=== PATIENT | female | born 1975 | race Caucasian/White ===

== ENCOUNTER 2018-02-26 06:30 | Day surgery (SDC) | payer BC ==
[2018-02-26] MEDS ORDERED: Sodium Chloride 0.9% 2.5 ML Syringe FLUSH PRN (06:56)
[2018-02-26] MEDS ORDERED: Sodium Chloride 0.9% 10 ML Syringe FLUSH PRN (06:56)
[2018-02-26] MEDS ORDERED: ceFAZolin 1 GM in Premix Bag 1 BAG IV ONE (06:56)
[2018-02-26] MEDS: Lactated Ringers 1,000 ML IV SCH ×2 (07:00→21:39)
--- NOTE | 2018-02-26 07:15 | PCM.PREANE ---
Preanesthetic Assessment - Anesthesia/Transfusion/Family Hx Anesthesia History: Prior Anesthesia Without Reaction Transfusion History: No Prior Transfusion(s) - Review of Systems General: No Symptoms Pulmonary: No Symptoms Cardiovascular: No Symptoms Gastrointestinal: No Symptoms Neurological: No Symptoms Other: Reports: None - Physical Assessment Height: 5 ft 4 in Weight: 72.121 kg ASA Class: 2 Mental Status: Alert & Oriented x3 Airway Class: Mallampati = 2 Dentition: Reports: Normal Dentition Thyro-Mental Finger Breadths: 3 Mouth Opening Finger Breadths: 3 ROM/Head Extension: Full Lungs: Clear to Auscultation, Normal Respiratory Effort Cardiovascular: Regular Rate, Regular Rhythm - Lab Values: Laboratory Last Values WBC 6.41 K/uL (4.0-11.0) 02/26/18 06:01 RBC 4.35 M/uL (4.30-5.90) 02/26/18 06:01 Hgb 12.3 g/dL (12.0-16.0) 02/26/18 06:01 Hct 38.0 % (36.0-46.0) 02/26/18 06:01 MCV 87.4 fL (80.0-98.0) 02/26/18 06:01 MCH 28.3 pg (27.0-32.0) 02/26/18 06:01 MCHC 32.4 g/dL (31.0-37.0) 02/26/18 06:01 RDW Std Deviation 44.0 fl (28.0-62.0) 02/26/18 06:01 RDW Coeff of Lizabeth 14 % (11.0-15.0) 02/26/18 06:01 Plt Count 291 K/uL (150-400) 02/26/18 06:01 MPV 9.00 fL (7.40-12.00) 02/26/18 06:01 Neut % (Auto) 58.8 % (48.0-80.0) 02/26/18 06:01 Lymph % (Auto) 32.3 % (16.0-40.0) 02/26/18 06:01 [place] % (Auto) 5.8 % (0.0-15.0) 02/26/18 06:01 Eos % (Auto) 2.3 % (0.0-7.0) 02/26/18 06:01 Baso % (Auto) 0.8 % (0.0-1.5) 02/26/18 06:01 Neut # (Auto) 3.8 K/uL (1.4-5.7) 02/26/18 06:01 Lymph # (Auto) 2.1 K/uL (0.6-2.4) 02/26/18 06:01 [place] # (Auto) 0.4 K/uL (0.0-0.8) 02/26/18 06:01 Eos # (Auto) 0.2 K/uL (0.0-0.7) 02/26/18 06:01 Baso # (Auto) 0.1 K/uL (0.0-0.1) 02/26/18 06:01 Nucleated RBC % 0.0 /100WBC 02/26/18 06:01 Nucleated RBCs # 0 K/uL 02/26/18 06:01 - Allergies Allergies/Adverse Reactions: Allergies Allergy/AdvReac Type Severity Reaction Status Date / Time erythromycin base Allergy Stomach Verified 02/20/18 11:56 Upset latex Allergy Swelling Verified 02/20/18 11:56 - Acknowledgements Anesthesia Type Planned: General Anesthesia Pt an Appropriate Candidate for the Planned Anesthesia: Yes Alternatives and Risks of Anesthesia Discussed w Pt/Guardian: Yes Pt/Guardian Understands and Agrees with Anesthesia Plan: Yes PreAnesthesia Questionnaire HEENT History: Reports: Allergic Rhinitis, Other (See Below) Other HEENT History: wears glasses/contacts Cardiovascular History: Reports: Other (See Below) Other Cardiovascular History: hx tachycardia in high school Respiratory History: Reports: None Gastrointestinal History: Reports: None Genitourinary History: Reports: None FUR DYER History: Reports: Musculoskeletal History: Reports: None Neurological History: Reports: Migraines Psychiatric History: Reports: Anxiety, Depression Endocrine/Metabolic History: Reports: None Hematologic History: Reports: None Immunologic History: Reports: None Oncologic (Cancer) History: Reports: None Dermatologic History: Reports: None - Infectious Disease History Infectious Disease History: Reports: Herpes - Past Surgical History Head Surgeries/Procedures: Reports: None HEENT Surgical History: Reports: Oral Surgery Female Surgical History: Reports: Other (See Below) Other Female Surgeries/Procedures: hx laparoscopy for endometriosis - SUBSTANCE USE Smoking Status *Q: Former Smoker Tobacco Use Within Last Twelve Months: No Recreational Drug Use History: No - HOME MEDS Home Medications: Home Meds Escitalopram [Lexapro] 10 mg PO DAILY 02/20/18 [History] Levocetirizine Dihydrochloride [Xyzal] 5 mg PO DAILY 02/20/18 [History] Mv-Min/Iron/Folic/Calcium/Vitk [Women's Daily Formula Tablet] 1 tab PO DAILY [History] valACYclovir HCl [Valtrex] 1 tab PO ASDIRECTED PRN 02/20/18 [History] - CURRENT (IN HOUSE) MEDS Current Meds: Current Medications Lactated Ringer's (Ringers, Lactated) 1,000 mls @ 125 mls/hr IV ASDIRECTED [facility] Last Admin: 02/26/18 07:00 Dose: 125 mls/hr Cefazolin Sodium/Dextrose 1 gm (/ Premix) 50 mls @ 100 mls/hr IV ONETIME ONE Stop: 02/26/18 07:25 Sodium Chloride (Saline Flush) 10 ml FLUSH ASDIRECTED PRN PRN Reason: Keep Vein Open Sodium Chloride (Saline Flush) 2.5 ml FLUSH ASDIRECTED PRN PRN Reason: Keep Vein Open
[2018-02-26] MEDS ORDERED: Ondansetron 4 MG/2 ML SDV ONE (07:23)
[2018-02-26] MEDS ORDERED: Midazolam 1 MG/ML 2 ML SDV ONE (07:23)
[2018-02-26] MEDS ORDERED: Glycopyrrolate 0.2 MG/ML SDV ONE ×3 (07:23→10:30)
[2018-02-26] MEDS ORDERED: Propofol 200 MG/20 ML SDV ONE (07:23)
[2018-02-26] MEDS ORDERED: fentaNYL 250 MCG/5 ML SDV ONE (07:23)
[2018-02-26] MEDS ORDERED: Neostigmine Methylsulfate 1 MG/ML 5 ML Syringe ONE (07:23)
[2018-02-26] MEDS ORDERED: Rocuronium 10 MG/ML 10 ML Syringe ONE (07:23)
[2018-02-26] MEDS ORDERED: Lidocaine 2% 5 ML SDV ONE (07:23)
[2018-02-26 07:32] LABS: CHLORIDE,CL 105 mmol/L (98-107); SODIUM,NA 140 mmol/L (136-145)
[2018-02-26] MEDS ORDERED: Methylene Blue 50 MG/10 ML Ampule ONE (07:38)
[2018-02-26] MEDS ORDERED: Bupivacaine 0.25% 10 ML SDV ONE (07:39)
[2018-02-26] MEDS ORDERED: Vasopressin 20 Units/1 ML MDV ONE (07:50)
[2018-02-26] MEDS ORDERED: ePHEDrine 50 MG/ML SDV ONE (08:27)
[2018-02-26] MEDS ORDERED: ceFAZolin 1 GM Vial ONE (08:33)
[2018-02-26] MEDS ORDERED: Sodium Chloride 0.9% 20 ML ONE (08:33)
[2018-02-26] MEDS ORDERED: Phenylephrine/Normal Saline 100 MCG/ML 10 ML Syringe ONE (08:44)
[2018-02-26] MEDS ORDERED: fentaNYL 100 MCG/2 ML SDV IVPUSH PRN (08:48)
[2018-02-26] MEDS ORDERED: Fluorescein 5 ML Vial ONE (08:53)
[2018-02-26] MEDS ORDERED: HYDROmorphone 2 MG/ML SDV ONE (09:27)
[2018-02-26] MEDS ORDERED: Acetaminophen/oxyCODONE 325-5 MG Tab PO PRN ×2 (10:48)
[2018-02-26] MEDS ORDERED: Morphine 4 MG/ML Syringe IVPUSH PRN (10:48)
[2018-02-26] MEDS ORDERED: Ketorolac 30 MG/ML SDV IVPUSH PRN (10:48)
[2018-02-26] MEDS ORDERED: Promethazine 25 MG/ML SDV IM PRN (10:48)
--- NOTE | 2018-02-26 10:59 | PCM.OPNOTE ---
- General Post-Op/Procedure Note Date of Surgery/Procedure: 02/26/18 Operative Procedure(s): LAVH , Bilateral salphingectomy, Cytoscopy and repair of vaginal wall laceration Findings: Normal sized anteverted mobile uterus 1cm left vaginal wall laceration Cytoscopy showed bilateral uterine jet with intact bladder Pre Op Diagnosis: Abnormal Uterine bleeding Post-Op Diagnosis: Abnormal Uterine bleeding Anesthesia Technique: General LMA Primary Surgeon: Christina Matthew Secondary Surgeon: Arlene Arthur Pathology: Uterus and tubes Fluid Replacement, Intraop: 2,800 Output, Urine Amount: 1,500 EBL in mLs: 150 Complications: Vaginal wall laceration Condition: Good
[2018-02-26] MEDS: Ketorolac 30 MG/ML SDV IVPUSH ONE ×2 (11:39→12:53)
--- NOTE | 2018-02-26 11:58 | PCM.POSTAN ---
POST ANESTHESIA ASSESSMENT - MENTAL STATUS Mental Status: Alert, Oriented - RESPIRATORY Respiratory Status: Respiratory Rate WNL, Airway Patent, O2 Saturation Stable - CARDIOVASCULAR CV Status: Pulse Rate WNL, Blood Pressure Stable - GASTROINTESTINAL GI Status: No Symptoms - PAIN Pain Score: 2 - POST OP HYDRATION Hydration Status: Adequate & Stable - OBSERVATIONS Free Text/Narrative:: no anesthesia problems
[2018-02-26] MEDS: Metoclopramide 10 MG/2 ML SDV IVPUSH SCH ×2 (12:38→18:42)
[2018-02-26] MEDS: Acetaminophen 1,000 MG in Premix Bag 1 BAG IV SCH ×3 (12:44→22:20)
[2018-02-26] MEDS: ceFAZolin 1 GM in Premix Bag 1 BAG IV SCH ×2 (14:56→21:40)
[2018-02-26] MEDS: Ondansetron 4 MG/2 ML SDV IVPUSH PRN (16:23)
--- NOTE | 2018-02-26 18:34 | PCM.SN ---
- Free Text/Narrative Note: Patient seen at bedside, she is tolerating cracker and fluid . She had some nausea and was given zofran. She has good pain control U/O - adequate , clear VSS:- wnl Abdomen; laparoscopic incision c/d/i Plan: Continue post op care Encouraged ambulation Venodynes Incentive spirometry D/c cotter at 10pm and Remove packing at 10pm
[2018-02-26] MEDS: Escitalopram 10 MG Tab PO SCH (21:44)
[2018-02-27] MEDS: Metoclopramide 10 MG/2 ML SDV IVPUSH SCH (03:18)
[2018-02-27] MEDS: Acetaminophen 1,000 MG in Premix Bag 1 BAG IV SCH ×2 (04:37→09:19)
[2018-02-27 06:37] LABS: CHLORIDE,CL 103 mmol/L (98-107); SODIUM,NA 138 mmol/L (136-145)
--- NOTE | 2018-02-27 07:11 | PCM.SURGPN ---
- General Info Date of Service: 02/27/18 Date of Surgery/Procedure: 02/26/18 POD#: 1 Post-Op Diagnosis: Abnormal uterine bleeding Admission Diagnosis/Problem: Abnormal uterine bleeding Functional Status: Reports: Pain Controlled, Tolerating Diet, Ambulating, Urinating - Review of Systems General: Reports: No Symptoms HEENT: Reports: No Symptoms Pulmonary: Reports: No Symptoms Cardiovascular: Reports: No Symptoms Gastrointestinal: Reports: No Symptoms Genitourinary: Reports: No Symptoms Musculoskeletal: Reports: No Symptoms Skin: Reports: No Symptoms Neurological: Reports: No Symptoms Psychiatric: Reports: No Symptoms - Patient Data Vitals - Most Recent: Last Vital Signs Temp 36.8 C 02/27/18 05:00 Pulse 64 02/27/18 05:00 Resp 16 02/27/18 05:00 BP 101/52 L 02/27/18 05:00 Pulse Ox 94 L 02/27/18 05:00 Weight - Most Recent: 72.121 kg I&O - Last 24 Hours: Intake & Output 02/26/18 02/27/18 02/27/18 22:59 06:59 14:59 Intake Total 1050 250 Output Total 500 650 Balance 550 -400 Lab Results Last 24 Hrs: Laboratory Results - last 24 hr 02/26/18 02/26/18 02/26/18 Range/Units 06:01 07:00 07:00 WBC 6.41 (4.0-11.0) K/uL RBC 4.35 (4.30-5.90) M/uL Hgb 12.3 (12.0-16.0) g/dL Hct 38.0 (36.0-46.0) % MCV 87.4 (80.0-98.0) fL MCH 28.3 (27.0-32.0) pg MCHC 32.4 (31.0-37.0) g/dL RDW Std Deviation 44.0 (28.0-62.0) fl RDW Coeff of Lizabeth 14 (11.0-15.0) % Plt Count 291 (150-400) K/uL MPV 9.00 (7.40-12.00) fL Neut % (Auto) 58.8 (48.0-80.0) % Lymph % (Auto) 32.3 (16.0-40.0) % [place] % (Auto) 5.8 (0.0-15.0) % Eos % (Auto) 2.3 (0.0-7.0) % Baso % (Auto) 0.8 (0.0-1.5) % Neut # (Auto) 3.8 (1.4-5.7) K/uL Lymph # (Auto) 2.1 (0.6-2.4) K/uL [place] # (Auto) 0.4 (0.0-0.8) K/uL Eos # (Auto) 0.2 (0.0-0.7) K/uL Baso # (Auto) 0.1 (0.0-0.1) K/uL Nucleated RBC % 0.0 /100WBC Nucleated RBCs # 0 K/uL Sodium 140 (136-145) mmol/L Potassium 4.0 (3.5-5.1) mmol/L Chloride 105 (98-107) mmol/L Carbon Dioxide 31.5 (21.0-32.0) mmol/L BUN 12 (7.0-18.0) mg/dL Creatinine 0.9 (0.6-1.0) mg/dL Est Cr Clr Drug Dosing 71.75 mL/min Estimated GFR (MDRD) > 60.0 ml/min Glucose 94 (74-106) mg/dL Calcium 8.4 L (8.5-10.1) mg/dL HCG, Qual NEGATIVE (NEG) Blood Type Antibody Screen 02/26/18 02/27/18 02/27/18 Range/Units 07:00 05:45 05:45 WBC 8.28 (4.0-11.0) K/uL RBC 3.46 L (4.30-5.90) M/uL Hgb 9.8 L (12.0-16.0) g/dL Hct 30.9 L (36.0-46.0) % MCV 89.3 (80.0-98.0) fL MCH 28.3 (27.0-32.0) pg MCHC 31.7 (31.0-37.0) g/dL RDW Std Deviation 42.6 (28.0-62.0) fl RDW Coeff of Lizabeth 14 (11.0-15.0) % Plt Count 260 (150-400) K/uL MPV 9.00 (7.40-12.00) fL Neut % (Auto) 62.6 (48.0-80.0) % Lymph % (Auto) 29.1 (16.0-40.0) % [place] % (Auto) 7.6 (0.0-15.0) % Eos % (Auto) 0.5 (0.0-7.0) % Baso % (Auto) 0.2 (0.0-1.5) % Neut # (Auto) 5.2 (1.4-5.7) K/uL Lymph # (Auto) 2.4 (0.6-2.4) K/uL [place] # (Auto) 0.6 (0.0-0.8) K/uL Eos # (Auto) 0.0 (0.0-0.7) K/uL Baso # (Auto) 0.0 (0.0-0.1) K/uL Nucleated RBC % /100WBC Nucleated RBCs # K/uL Sodium 138 (136-145) mmol/L Potassium 3.6 (3.5-5.1) mmol/L Chloride 103 (98-107) mmol/L Carbon Dioxide 31.1 (21.0-32.0) mmol/L BUN 10 (7.0-18.0) mg/dL Creatinine 0.8 (0.6-1.0) mg/dL Est Cr Clr Drug Dosing 80.72 mL/min Estimated GFR (MDRD) > 60.0 ml/min Glucose 100 (74-106) mg/dL Calcium 8.0 L (8.5-10.1) mg/dL HCG, Qual (NEG) Blood Type A POSITIVE Antibody Screen NEGATIVE Med Orders - Current: Current Medications Escitalopram Oxalate (Lexapro) 10 mg PO DAILY [facility] Last Admin: 02/26/18 21:44 Dose: 10 mg Fentanyl (Sublimaze) 50 mcg IVPUSH Q5M PRN PRN Reason: Pain (severe 7-10) Stop: 02/27/18 08:48 Lactated Ringer's (Ringers, Lactated) 1,000 mls @ 125 mls/hr IV ASDIRECTED [facility] Last Admin: 02/26/18 21:39 Dose: 125 mls/hr Acetaminophen 1,000 mg/ Premix 100 mls @ 400 mls/hr IV Q6H [facility] Stop: 02/27/18 11:00 Last Admin: 02/27/18 04:37 Dose: 400 mls/hr Ketorolac Tromethamine (Toradol) 30 mg IVPUSH Q6H PRN PRN Reason: Pain (severe 7-10) Stop: 03/03/18 10:48 Last Admin: 02/26/18 21:39 Dose: 30 mg Metoclopramide HCl (Reglan) 10 mg IVPUSH Q8H [facility] Stop: 02/27/18 11:01 Last Admin: 02/27/18 03:18 Dose: Not Given Morphine Sulfate (Morphine) 4 mg IVPUSH Q2H PRN PRN Reason: Pain (severe 7-10) Last Admin: 02/26/18 12:37 Dose: 4 mg Ondansetron HCl (Zofran) 4 mg IVPUSH Q6H PRN PRN Reason: Nausea/Vomiting Last Admin: 02/26/18 16:23 Dose: 4 mg Oxycodone/Acetaminophen (Percocet 325-5 Mg) 1 tab PO Q4H PRN PRN Reason: Pain (moderate 4-6) Oxycodone/Acetaminophen (Percocet 325-5 Mg) 2 tab PO Q4H PRN PRN Reason: Pain (moderate 4-6) Last Admin: 02/26/18 17:24 Dose: 2 tab Promethazine HCl (Phenergan) 25 mg IM Q6H PRN PRN Reason: Nausea/Vomiting Sodium Chloride (Saline Flush) 10 ml FLUSH ASDIRECTED PRN PRN Reason: Keep Vein Open Sodium Chloride (Saline Flush) 2.5 ml FLUSH ASDIRECTED PRN PRN Reason: Keep Vein Open Discontinued Medications Bupivacaine HCl (Sensorcaine-Mpf 0.25%) Confirm Administered Dose 20 ml .ROUTE .STK-MED ONE Stop: 02/26/18 07:40 Cefazolin Sodium (Ancef) Confirm Administered Dose 1 gm .ROUTE .STK-MED ONE Stop: 02/26/18 08:34 Ephedrine Sulfate (Ephedrine Sulfate) Confirm Administered Dose 50 mg .ROUTE .STK-MED ONE Stop: 02/26/18 08:28 Fentanyl (Sublimaze) Confirm Administered Dose 250 mcg .ROUTE .STK-MED ONE Stop: 02/26/18 07:24 Fluorescein Sodium (Ak-Fluor) Confirm Administered Dose 5 ml .ROUTE .STK-MED ONE Stop: 02/26/18 08:54 Glycopyrrolate (Robinul) Confirm Administered Dose 0.4 mg .ROUTE .STK-MED ONE Stop: 02/26/18 07:24 Glycopyrrolate (Robinul) Confirm Administered Dose 0.2 mg .ROUTE .STK-MED ONE Stop: 02/26/18 09:15 Glycopyrrolate (Robinul) Confirm Administered Dose 0.2 mg .ROUTE .STK-MED ONE Stop: 02/26/18 10:31 Hydromorphone HCl (Dilaudid) Confirm Administered Dose 2 mg .ROUTE .STK-MED ONE Stop: 02/26/18 09:28 Cefazolin Sodium/Dextrose 1 gm (/ Premix) 50 mls @ 100 mls/hr IV ONETIME ONE Stop: 02/26/18 07:25 Last Admin: 02/26/18 12:53 Dose: Not Given Sodium Chloride (Normal Saline) Confirm Administered Dose 20 mls @ as directed .ROUTE .STK-MED ONE Stop: 02/26/18 08:34 Cefazolin Sodium/Dextrose 1 gm (/ Premix) 50 mls @ 100 mls/hr IV Q8H [facility] Stop: 02/26/18 22:29 Last Admin: 02/26/18 21:40 Dose: 100 mls/hr Ketorolac Tromethamine (Toradol) 30 mg IVPUSH ONETIME ONE Stop: 02/26/18 10:49 Last Admin: 02/26/18 12:53 Dose: Not Given Lidocaine (Xylocaine-Mpf 2%) Confirm Administered Dose 5 ml .ROUTE .STK-MED ONE Stop: 02/26/18 07:24 Methylene Blue (Provayblue) Confirm Administered Dose 50 mg .ROUTE .STK-MED ONE Stop: 02/26/18 07:39 Midazolam HCl (Versed 1 Mg/Ml) Confirm Administered Dose 2 mg .ROUTE .STK-MED ONE Stop: 02/26/18 07:24 Neostigmine Methylsulfate (Neostigmine) Confirm Administered Dose 5 mg .ROUTE .STK-MED ONE Stop: 02/26/18 07:24 Ondansetron HCl (Zofran) Confirm Administered Dose 4 mg .ROUTE .STK-MED ONE Stop: 02/26/18 07:24 Phenylephrine HCl (Phenylephrine In Ns 100 Mcg/Ml) Confirm Administered Dose 1 mg .ROUTE .STK-MED ONE Stop: 02/26/18 08:45 Propofol (Diprivan 20 Ml) Confirm Administered Dose 200 mg .ROUTE .STK-MED ONE Stop: 02/26/18 07:24 Rocuronium [place] (Zemuron) Confirm Administered Dose 100 mg .ROUTE .STK-MED ONE Stop: 02/26/18 07:24 Vasopressin (Vasopressin) Confirm Administered Dose 20 units .ROUTE .STK-MED ONE Stop: 02/26/18 07:51 - Exam Wound/Incisions: Other (Laparoscopic incision c/d/i ) General: Alert, Oriented HEENT: Pupils Equal Neck: Supple Lungs: Clear to Auscultation Cardiovascular: Regular Rate, Regular Rhythm GI/Abdominal Exam: Normal Bowel Sounds Extremities: Normal Inspection Skin: Warm Neurological: No New Focal Deficit Psy/Mental Status: Alert - Problem List & Annotations (1) S/P hysterectomy SNOMED Code(s): 396533386, [id number], [id number] Code(s): Z90.710 - ACQUIRED ABSENCE OF BOTH CERVIX AND UTERUS Status: Acute Current Visit: Yes - Problem List Review Problem List Initiated/Reviewed/Updated: Yes - My Orders Last 24 Hours: Active Orders 24 hr Category Date Time Status Patient Status [ADT] Routine ADT 02/26/18 06:57 Active Patient Status [ADT] Routine ADT 02/26/18 10:48 Active Bradycardia-Neuroaxis [employer] [RC] ROUTINE Care 02/26/18 08:48 Active Hypertension-Neuroaxis [employer] [RC] ROUTINE Care 02/26/18 08:48 Active Hypotension-Neuroaxis [employer] [RC] ROUTINE Care 02/26/18 08:48 Active Notify Provider Intake and Out [RC] ASDIRECTED Care 02/26/18 10:48 Active Notify Provider Vital Signs [RC] ASDIRECTED Care 02/26/18 10:48 Active Oxygen Therapy [RC] ASDIRECTED Care 02/26/18 10:48 Active RT Incentive Spirometry [RC] Q2HWA Care 02/26/18 10:48 Active Up With Assistance [RC] PER UNIT ROUTINE Care 02/26/18 10:48 Active Up ad Margaret [RC] PER UNIT ROUTINE Care 02/26/18 10:48 Active Verify Patient Consent Obtain [RC] PER UNIT ROUTINE Care 02/26/18 06:57 Active Vital Signs [RC] PER UNIT ROUTINE Care 02/26/18 06:57 Active Vital Signs [RC] PER UNIT ROUTINE Care 02/26/18 10:48 Active Regular Diet [DIET] Diet 02/26/18 Dinner Active Acetaminophen [Ofirmev] 1,000 mg Med 02/26/18 11:00 Active Premix Bag 1 bag IV Q6H Acetaminophen/oxyCODONE [Percocet 325-5 MG] Med 02/26/18 10:48 Active 1 tab PO Q4H PRN Acetaminophen/oxyCODONE [Percocet 325-5 MG] Med 02/26/18 10:48 Active 2 tab PO Q4H PRN Escitalopram [Lexapro] Med 02/26/18 21:00 Active 10 mg PO DAILY Ketorolac [Toradol] Med 02/26/18 10:48 Active 30 mg IVPUSH Q6H PRN Lactated Ringers [Ringers, Lactated] 1,000 ml Med 02/26/18 06:15 Active IV ASDIRECTED Metoclopramide [Reglan] Med 02/26/18 11:00 Active 10 mg IVPUSH Q8H Morphine Med 02/26/18 10:48 Active 4 mg IVPUSH Q2H PRN Ondansetron [Zofran] Med 02/26/18 10:48 Active 4 mg IVPUSH Q6H PRN Promethazine [Phenergan] Med 02/26/18 10:48 Active 25 mg IM Q6H PRN Sodium Chloride 0.9% [Saline Flush] Med 02/26/18 06:56 Active 10 ml FLUSH ASDIRECTED PRN Sodium Chloride 0.9% [Saline Flush] Med 02/26/18 06:56 Active 2.5 ml FLUSH ASDIRECTED PRN fentaNYL [Sublimaze] Med 02/26/18 08:48 Active 50 mcg IVPUSH Q5M PRN Peripheral IV Discontinue [OM.PC] Routine Oth 02/26/18 10:48 Ordered Peripheral IV Insertion Adult [OM.PC] Urgent Oth 02/26/18 06:57 Ordered Remove Vaginal Packing [OM.PC] Per Unit Routine Oth 02/26/18 10:49 Ordered Sequential Compression Device [OM.PC] Per Unit Routine Oth 02/26/18 06:57 Ordered Sequential Compression Device [OM.PC] Per Unit Routine Oth 02/26/18 10:48 Ordered Resuscitation Status Routine Resus Stat 02/26/18 10:48 Ordered Medication Orders Escitalopram Oxalate (Lexapro) 10 mg PO DAILY [facility] Last Admin: 02/26/18 21:44 Dose: 10 mg Fentanyl (Sublimaze) 50 mcg IVPUSH Q5M PRN PRN Reason: Pain (severe 7-10) Stop: 02/27/18 08:48 Lactated Ringer's (Ringers, Lactated) 1,000 mls @ 125 mls/hr IV ASDIRECTED [facility] Last Admin: 02/26/18 21:39 Dose: 125 mls/hr Infusion: 02/26/18 15:00 Dose: 125 mls/hr Admin: 02/26/18 07:00 Dose: 125 mls/hr Acetaminophen 1,000 mg/ Premix 100 mls @ 400 mls/hr IV Q6H [facility] Stop: 02/27/18 11:00 Last Admin: 02/27/18 04:37 Dose: 400 mls/hr Infusion: 02/26/18 22:35 Dose: 400 mls/hr Admin: 02/26/18 22:20 Dose: 400 mls/hr Infusion: 02/26/18 17:45 Dose: 400 mls/hr Admin: 02/26/18 17:30 Dose: 400 mls/hr Infusion: 02/26/18 12:59 Dose: 400 mls/hr Admin: 02/26/18 12:44 Dose: 400 mls/hr Ketorolac Tromethamine (Toradol) 30 mg IVPUSH Q6H PRN PRN Reason: Pain (severe 7-10) Stop: 03/03/18 10:48 Last Admin: 02/26/18 21:39 Dose: 30 mg Metoclopramide HCl (Reglan) 10 mg IVPUSH Q8H [facility] Stop: 02/27/18 11:01 Last Admin: 02/27/18 03:18 Dose: Not Given Admin: 02/26/18 18:42 Dose: 10 mg Admin: 02/26/18 12:38 Dose: 10 mg Morphine Sulfate (Morphine) 4 mg IVPUSH Q2H PRN PRN Reason: Pain (severe 7-10) Last Admin: 02/26/18 12:37 Dose: 4 mg Ondansetron HCl (Zofran) 4 mg IVPUSH Q6H PRN PRN Reason: Nausea/Vomiting Last Admin: 02/26/18 16:23 Dose: 4 mg Oxycodone/Acetaminophen (Percocet 325-5 Mg) 1 tab PO Q4H PRN PRN Reason: Pain (moderate 4-6) Oxycodone/Acetaminophen (Percocet 325-5 Mg) 2 tab PO Q4H PRN PRN Reason: Pain (moderate 4-6) Last Admin: 02/26/18 17:24 Dose: 2 tab Promethazine HCl (Phenergan) 25 mg IM Q6H PRN PRN Reason: Nausea/Vomiting Sodium Chloride (Saline Flush) 10 ml FLUSH ASDIRECTED PRN PRN Reason: Keep Vein Open Sodium Chloride (Saline Flush) 2.5 ml FLUSH ASDIRECTED PRN PRN Reason: Keep Vein Open - Assessment Assessment (Free Text/Narrative):: 42 yo s/p DB , BS POD 1 , stable She is ambulating voiding and tolerating regular diet Has good pain control - Plan Plan (Free Text/Narrative):: Discharge home
[2018-02-27] MEDS: Escitalopram 10 MG Tab PO SCH (08:50)
[2018-02-27] MEDS: Ondansetron 4 MG/2 ML SDV IVPUSH PRN (09:16)
--- NOTE | 2018-02-27 09:21 | OR ---
DATE OF PROCEDURE: 02/26/2018 SURGEON: TOSHIA ESQUIVEL PREOPERATIVE DIAGNOSIS: Abnormal uterine bleeding. POSTOPERATIVE DIAGNOSIS: Abnormal uterine bleeding. PROCEDURE PERFORMED: Laparoscopic assisted vaginal hysterectomy, bilateral salpingectomy, cystoscopy, and repair vaginal laceration. ANESTHESIA: General. EBL: 150. IV FLUIDS: 2800. URINE OUTPUT: 1500. SPECIMEN: The uterus and tubes sent to pathology. COMPLICATION: 1-cm vaginal wall laceration. FINDINGS: Examination under anesthesia revealed a normal-sized anteverted uterus. The cystoscopy revealed an intact bladder with bilateral ureteral jets. There was a 1-cm vaginal wall laceration noted, which was repaired. BRIEF HISTORY: She was a 42-year-old, P4, who was desiring hysterectomy. She came because she was complaining of heavy bleeding that lasted 4 to 5 days. She was changing pads every 1 to 2 hours. She has also been having irregular periods for the past 6 months. She had a history of laparoscopically diagnosed endometriosis, however, currently she was not having pain. EMB is benign. The uterus was about 9 x 4 x 6 cm with some suggestion of adenomyosis. DESCRIPTION OF PROCEDURE: The patient was taken to the operating room with IV fluids running and pneumatic compression stockings applied to the lower extremity. General anesthesia was performed without difficulty. The patient was placed in the dorsal lithotomy position with the Stanislaw stirrups and hand tucked on from both sides. Examination under anesthesia revealed a normal-sized anteverted uterus. A bivalve speculum was placed to expose the cervix. The Gamble catheter was placed. The anterior lip of the cervix was grasped with Allis forceps. The uterus was sounded to a depth of 8 cm. The Advincula was placed in the cervix . The tips of the Advincula were then inflated. The occluder balloon was then also inflated. Attention was then placed to the abdomen. Marcaine was then inserted into the subumbilical fold. A small incision was made at the umbilical fold and the abdomen was entered by direct entry with a fiberoptic trocar. Upon confirmation of entry into the abdominal cavity, the abdomen was insufflated with CO2 to a pressure of 15 mmHg. Intraabdominal survey revealed normal-appearing liver, gallbladder, and spleen. The pelvic anatomy was noted as above. Again, two 5-mm trocars were inserted into bilateral lower quadrants 2 fingerbreadths medial and anterior to the anterior superior iliac spine and diagonal to the umbilicus. The patient was placed in Trendelenburg position to facilitate pelvic exposure. The uterus identified and hysterectomy was started on the right side and also on the left, the fallopian tube was dissected under the mesosalpinx and detached to the cornua. The ovarian ligament was also detached with the LigaSure device. Then, the bladder flap was created with the aid of the LigaSure device. The uterine vessels were skeletonized and were coagulated and caught on the right side and also on the left side. The attention was then paid to the perineum where weighted speculum was placed in the posterior vagina and expose the cervix. The anterior and posterior lip of the cervix were grasped with the Bryce tenaculum Pitressin was injected circumferentially at the cervicovaginal junction. A circumferential Incision was made and carried down to the pericervical fascia allowing the cervix to separate from the vaginal mucosa. The bleeding spots were coagulated. The posterior cul-de-sac was entered in sharply with the Kinney scissors with the tip pointing towards the uterus. Prior to this, the anterior colpotomy was also done and the bladder was elevated with the right angle retractor.the uterosacral ligaments were clamped with Sonya clamps, cut, and suture ligated. Following with a cardinal ligament, which was clamped and cut and suture ligated. The uterus and tubes were delivered intact through the vagina and sent to pathology. The vaginal angles were transfixed to the uterosacral ligaments. The sites were inspected for hemostasis. The colpotomy was then repaired with 0 Polysorb in a continuous locking fashion. Then, the cystoscopy was performed. The bilateral jets were noted and the bladder was noted to be intact. Attention was then paid to the abdomen where laparoscopy confirmed hemostasis. Then, attention was paid again to the perineum where the vaginal cuff was inspected and little bleeding was noted and was sutured with a [id number] suture. Then, the vaginal laceration that was noted was sutured with 3-0 Vicryl in a continuous fashion. Hemostasis was noted after the procedure. The vagina was then packed with vaginal packing and all instrument and pad counts were correct x2. The patient was taken to the recovery room in stable condition. ASAEL SALDIVAR /[id number] MTDD
--- NOTE | 2018-02-27 15:04 | PCM48HPAN ---
Post Anesthesia Note - EVALUATION WITHIN 48HRS OF ANESTHETIC Vital Signs in Normal Range: Yes Patient Participated in Evaluation: Yes Respiratory Function Stable: Yes Airway Patent: Yes Cardiovascular Function Stable: Yes Hydration Status Stable: Yes Pain Control Satisfactory: Yes Nausea and Vomiting Control Satisfactory: Yes Mental Status Recovered: Yes Resp Rate: 16
== END 2018-02-27 09:45 | disposition home or self-care (01) ==
LOC: MW.SDS 06:30 → MW.MS 06:57 → MW.SDS 02-27 09:45
PROVIDERS: ATTEND Obstetrics & Gynecology
DX: D25.1 Intramural leiomyoma of uterus (principal); N80.0 Endometriosis of uterus; F41.9 Anxiety disorder, unspecified; F32.9 Major depressive disorder, single episode, unspecified; Z87.891 Personal history of nicotine dependence; Z79.899 Other long term (current) drug therapy; Z88.1 Allergy status to other antibiotic agents; Z91.040 Latex allergy status
CPT/HCPCS: 36415; 58552; 80048; 84703; 85025; 86850; 86900; 86901; 88307; A9270; J0690; J1170; J1885; J2250; J2270; J2405; J2765; J3010; J7120; 00944; J2704

== ENCOUNTER 2021-05-04 11:38 | Emergency (ER) | payer BC ==
--- NOTE | 2021-05-04 11:52 | EDM.PDOC ---
<MynorbunnyJusto jhaveri Latoya - Last Filed: 05/04/21 11:52> ED HPI GENERAL MEDICAL PROBLEM - General Chief Complaint: Headache Stated Complaint: migraine Time Seen by Provider: 05/04/21 11:39 Source of Information: Reports: Patient History Limitations: Reports: No Limitations - Related Data Allergies Allergy/AdvReac Type Severity Reaction Status Date / Time erythromycin base Allergy Stomach Verified 05/04/21 12:17 Upset latex Allergy Swelling Verified 05/04/21 12:17 Home Meds: Home Meds . 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: Musculoskeletal History: Reports: None Neurological History: Reports: Migraines Psychiatric History: Reports: Anxiety, Depression Endocrine/Metabolic History: Reports: None Hematologic History: Reports: None Immunologic History: Reports: None Oncologic (Cancer) History: Reports: None Dermatologic History: Reports: None - Infectious Disease History Infectious Disease History: Reports: Herpes - Past Surgical History Head Surgeries/Procedures: Reports: None HEENT Surgical History: Reports: Oral Surgery Female Surgical History: Reports: Other (See Below) Other Female Surgeries/Procedures: hx laparoscopy for endometriosis Departure - Departure Disposition: Home, Self-Care 01 Clinical Impression: Migraine headache Qualifiers: Migraine type: without aura Status migrainosus presence: without status migrainosus Intractability: not intractable Qualified Code(s): G43.009 - Migraine without aura, not intractable, without status migrainosus - Discharge Information Instructions: Migraine Headache, [id number] Referrals: PCP,None [Primary Care Provider] - Forms: ED Department Discharge Additional Instructions: The following information is given to patients seen in the emergency department who are being discharged to home. This information is to outline your options for follow-up care. We provide all patients seen in our emergency department with a follow-up referral. The need for follow-up, as well as the timing and circumstances, are variable depending upon the specifics of your emergency department visit. If you don't have a primary care physician on staff, we will provide you with a referral. We always advise you to contact your personal physician following an emergency department visit to inform them of the circumstance of the visit and for follow-up with them and/or the need for any referrals to a consulting specialist. The emergency department will also refer you to a specialist when appropriate. This referral assures that you have the opportunity for follow-up care with a specialist. All of these measure are taken in an effort to provide you with optimal care, which includes your follow-up. Under all circumstances we always encourage you to contact your private physician who remains a resource for coordinating your care. When calling for follow-up care, please make the office aware that this follow-up is from your recent emergency room visit. If for any reason you are refused follow-up, please contact the [facility] Emergency Department at and asked to speak to the emergency department charge nurse. [facility] [address] [place] [id number] [place] [address] Thank you for choosing the [facility] emergency department in [place] for your medical needs today. It was a pleasure caring for you. Today you were seen in the emergency department for migraine headache. 1. You were evaluated today on an emergent basis. You did receive medication that may cause drowsiness, please do not drive for the next few hours. 2. You can alternate Tylenol and ibuprofen as needed for pain and fever management. 3. We encourage you to follow up with your primary care provider and/or recommended specialist in the next few days for re-evaluation and further care/management. 4. If your symptoms should worsen, new symptoms develop or any of the signs and symptoms we discussed should arise please return to the emergency room or call 911 (if needed). <Doroteo Martinez E - Last Filed: 05/04/21 12:56> ED HPI GENERAL MEDICAL PROBLEM - General Source of Information: Reports: Patient History Limitations: Reports: No Limitations - History of Present Illness INITIAL COMMENTS - FREE TEXT/NARRATIVE: HISTORY AND PHYSICAL: History of present illness: Patient is a 46-year-old female who presents to the emergency room with complaints of generalized headache, nausea, vomiting and increased anxiety. She states she is in town to help her dad as he is going to be recovering with surgery. She has had a headache over the past 24 hours and has not improved with [id number] Tylenol. Believes headache is from the [employer] wild fires; stating her sinus have been acting up the past 3 days. She states she feels very anxious due to needing to be at her dad's house and instead being here in the emergency room. Patient denies any fever, chills, change in vision, syncope/near syncope, or neck pain/stiffness. Denies any chest pain, back pain, shortness of breath or cough. Denies any abdominal pain, diarrhea, constipation or dysuria. Has not noted any blood in urine or stool. No concern for , history of hysterectomy. Patient has been eating and drinking appropriately. Review of systems: As per history of present illness and below otherwise all systems reviewed and negative. Past medical history: As per history of present illness and as reviewed below otherwise noncontributory. Surgical history: As per history of present illness and as reviewed below otherwise noncontributory. Social history: See social history for further information Family history: As per history of present illness and as reviewed below otherwise noncontributory. Physical exam: General: Well developed and well nourished 46 year old female. Alert and orientated x 3. Tearful, anxious but nontoxic in appearance and in no acute distress. Vital signs are stable and have been reviewed by me. Nursing notes were reviewed. HEENT: Atraumatic, normocephalic, pupils equal and reactive bilaterally, negative for conjunctival pallor or scleral icterus, mucous membranes moist, TMs normal bilaterally, throat clear, neck supple, nontender, trachea midline. No drooling or trismus noted. No meningeal signs. No hot potato voice noted. Lungs: Clear to auscultation bilaterally. Chest nontender. Normal work of breathing, no accessory muscles used. Heart: S1S2, regular rate and rhythm without overt murmur, gallops, or rubs. No JVD. No peripheral edema Abdomen: Soft, nondistended, nontender. Skin: Intact, warm, dry. No lesions or rashes noted. Hematologic: No petechiae or purpra. Mucosa appropriate color and normal nail bed color and refill. Extremities: Atraumatic, moves all extremities per self without difficulty or deficits, negative for cords or calf pain. Neurovascular unremarkable. Neuro: Awake, alert, oriented. Cranial nerves II through XII unremarkable. Cerebellum unremarkable. Motor and sensory unremarkable throughout. Exam nonfocal. Psychiatric: Mood and affect are appropriate. Normal thought process. Answering questions appropriately. Notes: *This patient was seen and evaluated during the 2019 SARS-CoV-2 novel coronavirus pandemic period. Community viral transmission is ongoing at time of this encounter and the emergency department is operating under pandemic response procedures. Patient is a 46-year-old female who presents to the emergency room with complaints of migraine headache. We did discuss diagnostics such as lab work and head CT which she declines. She states she gets headaches frequently and this is no worse than previous ones. She states that she also feels increased anxiety due to her father having surgery and she is needed to help with the recovery process. Patient feels improved after medications. Vital signs are stable. I have talked with the patient about today's findings, in addition to providing specific details for plan of care. Reassessment at the time of disposition demonstrates that the patient is in no acute distress. The patient is stable for discharge, counseling was provided and we discussed in great detail signs and symptoms that would prompt them to return to the Emergency Department. Medication, follow up and supportive care measures were reviewed and discussed. Voices understanding and is agreeable to plan of care. Denies any further questions or concerns at this time. Diagnostics: [employer]: IV fluids, Toradol, Zofran, Ativan Prescription: None Impression: Migraine headache Plan: 1. You were evaluated today on an emergent basis. You did receive medication that may cause drowsiness, please do not drive for the next few hours. 2. You can alternate Tylenol and ibuprofen as needed for pain and fever management. 3. We encourage you to follow up with your primary care provider and/or recommended specialist in the next few days for re-evaluation and further care/management. 4. If your symptoms should worsen, new symptoms develop or any of the signs and symptoms we discussed should arise please return to the emergency room or call 911 (if needed). Definitive disposition and diagnosis as appropriate pending reevaluation and review of above. ED ROS GENERAL - Review of Systems Review Of Systems: Comprehensive ROS is negative, except as noted in HPI. ED EXAM, GENERAL - Physical Exam Exam: See Below (See dictation) Course - Vital Signs Last Recorded V/S: Last Vital Signs Temp 96.9 F 05/04/21 12:16 Pulse 89 05/04/21 12:16 Resp 20 05/04/21 12:16 BP 139/62 05/04/21 12:16 Pulse Ox 97 05/04/21 12:16 - Orders/Labs/Meds Orders: Active Orders 24 hr Category Date Time Status Sodium Chloride 0.9% [Normal Saline] 1,000 ml Med 05/04/21 11:59 Active IV STAT Medication Orders Sodium Chloride (Normal Saline) 1,000 mls @ 999 mls/hr IV STAT ONE Stop: 05/04/21 12:59 Last Admin: 05/04/21 12:34 Dose: 999 mls/hr Documented by: [email or web address] Meds: Medications Generic Name Dose Route Start Last Admin Trade Name Freq PRN Reason Stop Dose Admin Sodium Chloride 1,000 mls @ 999 mls/hr 05/04/21 11:59 05/04/21 12:34 Normal Saline IV 05/04/21 12:59 999 mls/hr STAT ONE Administration Discontinued Medications Generic Name Dose Route Start Last Admin Trade Name Freq PRN Reason Stop Dose Admin Ketorolac Tromethamine 30 mg 05/04/21 11:59 05/04/21 12:35 Ketorolac 30 Mg/Ml Sdv IVPUSH 05/04/21 12:00 30 mg ONETIME ONE Administration Lorazepam 0.5 mg 05/04/21 11:59 05/04/21 12:34 Lorazepam 2 Mg/Ml Sdv IVPUSH 05/04/21 12:00 0.5 mg ONETIME ONE Administration Ondansetron HCl 4 mg 05/04/21 11:59 05/04/21 12:35 Ondansetron 4 Mg/2 Ml Sdv IVPUSH 05/04/21 12:00 4 mg ONETIME ONE Administration Departure - Departure Time of Disposition: 12:56 Sepsis Event Note (ED) - Focused Exam Vital Signs: Vital Signs Temp Pulse Resp BP Pulse Ox 05/04/21 12:16 96.9 F 89 20 139/62 97 - My Orders Last 24 Hours: My Active Orders 05/04/21 11:59 Sodium Chloride 0.9% [Normal Saline] 1,000 ml IV STAT - Assessment/Plan Last 24 Hours: My Active Orders 05/04/21 11:59 Sodium Chloride 0.9% [Normal Saline] 1,000 ml IV STAT
[2021-05-04] MEDS ORDERED: Sodium Chloride 0.9% 1,000 ML IV ONE (11:59)
[2021-05-04] MEDS ORDERED: Ketorolac 30 MG/ML SDV IVPUSH ONE (11:59)
[2021-05-04] MEDS ORDERED: LORazepam 2 MG/ML SDV IVPUSH ONE (11:59)
[2021-05-04] MEDS ORDERED: Ondansetron 4 MG/2 ML SDV IVPUSH ONE (11:59)
== END 2021-05-04 13:30 | disposition home or self-care (01) ==
LOC: MW.ED 11:38
DX: G43.009 Migraine without aura, not intractable, without status migrainosus (principal); Z88.1 Allergy status to other antibiotic agents; Z91.040 Latex allergy status
CPT/HCPCS: 96374; 96375; 99283; J1885; J2060; J2405; J7030